=== PATIENT | female | born 1980 | race Caucasian/White ===

== ENCOUNTER 2017-07-06 16:58 | Emergency (ER) | payer BC ==
[~2017-07-06] VITALS: Ht 162.6 cm; Wt 60.0 kg
[2017-07-06 17:59] LABS: HEMATOCRIT 49.1 % (36.0-46.0); HEMOGLOBIN 17.6 G/DL (11.9-15.5); MCH 32.4 PG (29.0-34.0); MCHC 35.8 G/DL (30.0-36.0); MCV 90.3 FL (83-99); RBC DIS.WIDTH-CV 12.5 % (11.8-14.6); RBC DIS.WIDTH-SD 41.1 % (39-53); RED BLOOD COUNT 5.44 M/uL (3.80-5.20)
[2017-07-06 18:13] LABS: ALBUMIN 5.5 g/dL (3.2-4.8); CHLORIDE 96 mEq/L (99-109); POTASSIUM 4.1 mEq/L (3.7-5.4); SODIUM 137 mEq/L (136-147)
[2017-07-06 18:16] LABS: GLUCOSE 82 mg/dL (70-99); TOTAL PROTEIN 9.1 g/dL (6.4-8.3)
[2017-07-06 18:18] LABS: TOTAL BILIRUBIN 1.4 mg/dL (0.0-1.0)
[2017-07-06 18:19] LABS: ALKALINE PHOSPHATASE 87 IU/L (3-129); CREATININE 0.8 mg/dL (0.6-1.3); GFR ESTIMATE (CALCULATED) > 59 mL/min/
[2017-07-06 18:20] LABS: UREA NITROGEN (BUN) 22 mg/dL (9-23)
[2017-07-06 18:21] LABS: AST (GOT) 25 IU/L (2-34)
[2017-07-06 18:22] LABS: APPEARANCE CLOUDY ((CLEAR)); BILIRUBIN NEGATIVE; BLOOD MODERATE; COLOR AMBER ((YELLOW)); GLUCOSE (STRIP) NEGATIVE; KETONES 80; LEUKOCYTES NEGATIVE; NITRITE NEGATIVE; PROTEIN (STRIP) 100; SPECIFIC GRAVITY 1.029 (1.000-1.030); UROBILINOGEN 0.2 MG/DL (0.2-1.0)
[2017-07-06 18:22] LABS: ALT (GPT) 20 IU/L (3-49)
[2017-07-06 18:28] LABS: QUANTITATIVE HCG < 4.0 MIU/ML
[2017-07-06 18:44] LABS: BACTERIA 2+ /HPF; EPITHELIAL CELLS 2+ /HPF; MUCUS 3+ /LPF; RED BLOOD CELLS RARE /HPF (0-5); UCUL ADDED? YES; WHITE BLOOD CELLS 0-5 /HPF (0-5)
[2017-07-06 19:14] LABS: PLATELET COUNT 258 K/uL (156-360)
[2017-07-06] MEDS ORDERED: ZOFRAN ODT4 MG PO (20:55)
[2017-07-06 21:32] VITALS: BP 110/61
== END 2017-07-06 21:34 | disposition home or self-care (01) ==
LOC: EME 16:58
DX: R11.2 Nausea with vomiting, unspecified (principal); E86.0 Dehydration; F17.200 Nicotine dependence, unspecified, uncomplicated; Z88.2 Allergy status to sulfonamides
CPT/HCPCS: 80053; 81003; 84702; 85027; 87086; 99281; 99285; J2405; J7030